=== PATIENT | female | born 1945 | race Caucasian/White ===

== ENCOUNTER → 2016-06-23 | Outpatient (CLI) | payer OTHER ==
[~2016-06-23] MED LIST: ATEN-175 PO; DOCU-94 PO; HYDR2TAB2 PO; LISI-461 PO; MULT-614 PO; OMEG10007 PO; OPTIRAY 320 IV PRN; POLYSOL4 OPB; PROM12.56 PO; SIMV20TA2 PO; TRIA37.5 PO
--- NOTE | 2016-06-23 13:29 | DIAGNOSTIC IMAGING REPORT ---
CT OF THE ABDOMEN AND PELVIS WITH AND WITHOUT CONTRAST CLINICAL HISTORY: Right renal mass. Renal cell carcinoma. COMPARISON STUDY: CT of the abdomen and pelvis June 25, 2015 and MRI of the abdomen November 19, 2014. TECHNIQUE: Unenhanced images of the abdomen and pelvis were obtained. Nephrographic phase imaging was then performed following intravenous injection of 70 cc of Optiray 320 IV. Delayed phase imaging was then performed through the abdomen and pelvis. CT DOSE: 1950.35 mGycm FINDINGS: Lung bases are clear. Mild biliary ductal dilatation is unchanged from prior exam and likely due to cholecystectomy. A subcentimeter right hepatic lobe lesion is unchanged. This is benign. The spleen, adrenal glands and pancreas are normal. The patient is status post right nephrectomy. The nephrectomy bed is within normal limits. A 1.6 cm cyst within the upper pole of the left kidney is noted. 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 There is no left hydronephrosis. There is no evidence for a bowel obstruction. Fat-containing ventral and umbilical hernias are noted. There has been interval development of asymmetry of the right lower lateral abdominal wall. Heterogeneity of the musculature is noted with mild enhancement. A discrete mass is not identified. IMPRESSION: 1. Status post right nephrectomy. No abnormality within the nephrectomy bed. 2. Interval development of asymmetry of the right lower lateral abdominal wall musculature. The muscle now appears heterogeneous with areas of mild enhancement. The findings are nonspecific and could be postsurgical or posttraumatic; however, tumor seeding could appear similar. PET/CT may be of benefit in further evaluation. Electronically signed by: Jeremiah Champion M.D. 06/23/2016 1:27 PM Dictated Date/Time: 06/23/2016 12:12 PM
== END | disposition home or self-care (01) ==
LOC: C.CTS 11:23
PROVIDERS: ATTEND Urology
DX: N28.89 Other specified disorders of kidney and ureter (principal)

== ENCOUNTER → 2017-01-03 | Outpatient (CLI) | payer OTHER ==
--- NOTE | 2017-01-03 10:54 | DIAGNOSTIC IMAGING REPORT ---
CT ABD/PELVIS COMBO CLINICAL HISTORY: CLEAR CELL RENAL CELL CARCINOMA COMPARISON STUDY: 06/23/2016 TECHNIQUE: Unenhanced images were obtained through the abdomen and pelvis. The patient was then scanned in a dynamic fashion during intravenous administration of 80 cc of Optiray 320. 5 minute delayed images were also acquired. A dose lowering technique was utilized adhering to the principles of ALARA. CT DOSE: 1813.91 mGycm FINDINGS: Lower chest: There are minimal dependent atelectatic changes present. There is a small hiatal hernia. Liver: There is a stable 2 small to characterize 4 mm hypodensity within the right hepatic lobe. There is no significant ductal dilatation. Gallbladder: Surgically absent Spleen: Normal in size and attenuation. Pancreas: Unremarkable. Adrenal glands: There is stable left adrenal gland thickening. Kidneys: The right kidney is surgically absent. No renal, ureteral, or bladder calculi are visualized. 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 There is a 14 mm upper pole left renal cyst. This too small to characterize 3 mm hypodensity arising from the lower pole of the left kidney likely representing an additional cyst. No collecting system filling defects are visualized. No ureteral lesions are visualized. No bladder lesions are visualized. Bowel: There are no transition zones indicate bowel obstruction. There is sigmoid diverticulosis. Minimal sigmoid peridiverticular inflammatory stranding cannot be excluded. Peritoneum: There is no intraperitoneal free air or abdominal ascites. There is a fat-containing umbilical hernia, and fat-containing superior umbilical ventral hernia. There is additional ventral hernia which contains a small portion of transverse colon. Superior to this is an additional fat-containing ventral hernia. Vasculature: The abdominal aorta is normal in course and caliber. Adenopathy: None. Pelvic viscera: The bladder, and pelvic viscera are unremarkable. Skeletal structures: No destructive osseous lesions are seen. Minimal asymmetry of the right lower anterolateral abdominal wall musculature remains similar. IMPRESSION: 1. Surgically absent right kidney 2. Multiple ventral hernias 3. 9 mm left renal angiomyolipoma 4. 14 mm upper pole left renal cyst 5. No evidence of pathologic adenopathy 6. Sigmoid diverticulosis. Equivocal minimal peridiverticular inflammatory stranding Electronically signed by: Edward Medellin M.D. 01/03/2017 10:52 AM Dictated Date/Time: 01/03/2017 10:33 AM
== END | disposition home or self-care (01) ==
LOC: C.CTS 09:18
PROVIDERS: ATTEND Urology
DX: C64.9 Malignant neoplasm of unspecified kidney, except renal pelvis (principal); Z90.5 Acquired absence of kidney; K43.9 Ventral hernia without obstruction or gangrene; D17.71 Benign lipomatous neoplasm of kidney; N28.1 Cyst of kidney, acquired; K57.30 Diverticulosis of large intestine without perforation or abscess without bleeding

== ENCOUNTER → 2017-03-16 | Outpatient (CLI) | payer OTHER ==
[~2017-03-16] MED LIST changes: -OPTIRAY 320 IV PRN
--- NOTE | 2017-03-17 14:43 | DIAGNOSTIC IMAGING REPORT ---
MRA OF THE INTRACRANIAL CIRCULATION WITHOUT CONTRAST CLINICAL HISTORY: Brain mass. COMPARISON STUDY: None available at time of interpretation. TECHNIQUE: Utilizing a 1.5 Elizabeth magnet and 3-D [id number] technique, unenhanced MRA of the intracranial circulation was obtained. FINDINGS: Note is made of a mass centered within the right aspect of the agustin that measures approximately 2.5 x 1.8 x 1.5 cm. There is significant vascularity of this mass. This mass is suboptimally assessed on this MRA examination. Boat Buffer Plastic images demonstrate associated edema. No additional intracranial masses are identified on this MRA. The bilateral M1, M2, A1 and A2 segments are patent. The left vertebral artery is dominant and patent. No abrupt vessel cut off is identified. There is no intracranial aneurysm. IMPRESSION: 1. 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 Mass suboptimally assessed on this MRA exam but associated vasogenic edema and significant vascularity of this lesion. This lesion is indeterminate and could be correlated with prior imaging studies. A neoplastic process, including metastatic disease, is the diagnosis of exclusion. 2. Otherwise, unremarkable MRA of the intracranial circulation for age. Electronically signed by: Jeremiah Champion M.D. 03/17/2017 2:42 PM Dictated Date/Time: 03/16/2017 8:49 PM
== END | disposition home or self-care (01) ==
LOC: C.MRI 19:09
DX: R42 Dizziness and giddiness (principal); R22.0 Localized swelling, mass and lump, head; G93.9 Disorder of brain, unspecified

== ENCOUNTER → 2017-05-05 | Outpatient (CLI) | payer OTHER ==
[~2017-05-05] MED LIST changes: +AMLO-114 PO; +HYDR12.56 PO
--- NOTE | 2017-05-05 15:39 | DIAGNOSTIC IMAGING REPORT ---
BILATERAL LOWER EXTREMITY VENOUS DOPPLER HISTORY: Edema of the bilateral lower extremities. CLEAR CELL CARCINOMA RT KIDNEY, EDEMA LOWER EXT COMPARISON STUDY: None available. FINDINGS: RIGHT: There is normal compressibility, flow, and augmentation within the bilateral lower extremity deep venous systems. LEFT: Nonocclusive thrombus involves the popliteal vein within the proximal mid portions of the vessel. There is occlusive thrombus noted within the distal portion of the popliteal vein, posterior tibial and peroneal veins and also within one of the two anterior tibial veins. There is otherwise normal flow, compressibility, phasicity and augmentation of the left lower extremity deep venous structures. IMPRESSION: 1. Occlusive deep venous thrombosis extends from the left popliteal vein into the posterior tibial, peroneal and anterior tibial veins. 2. No sonographic evidence of deep venous thrombosis on the right. Electronically signed by: Damaso Rees M.D. 05/05/2017 3:38 PM Dictated Date/Time: 05/05/2017 3:35 PM
== END | disposition home or self-care (01) ==
LOC: C.ULTRBC 14:39
PROVIDERS: ATTEND Internal Medicine Hematology & Oncology
DX: C64.1 Malignant neoplasm of right kidney, except renal pelvis (principal); I82.432 Acute embolism and thrombosis of left popliteal vein; I82.442 Acute embolism and thrombosis of left tibial vein; I82.492 Acute embolism and thrombosis of other specified deep vein of left lower extremity

== ENCOUNTER 2017-09-09 18:58 | Emergency (ER) | payer OTHER ==
[~2017-09-09] VITALS: Ht 157.5 cm; Wt 81.4 kg
[~2017-09-09 18:58] MED LIST changes: -DOCU-94 PO; +DOXY100C2 PO; -HYDR2TAB2 PO; -LISI-461 PO; -PROM12.56 PO; -TRIA37.5 PO
[2017-09-09 19:06] VITALS: TEMP 36.7; Ht 157.5 cm; Wt 81.4 kg
[2017-09-09] MEDS ORDERED: SODIUM CHLORIDE 0.9% 1000ML 1,000 ML IV STA (19:18)
[2017-09-09 19:45] LABS: BASO % 0.5 %; BASO ABS # 0.02 K/uL (0-0.2); EOS % 1.6 %; EOS ABS # 0.07 K/uL (0-0.5); HEMATOCRIT 37.5 % (37-47); HEMOGLOBIN 12.7 g/dL (12.0-16.0); IG# 0.02 K/uL (0.00-0.02); LYMPH % 26.9 %; LYMPH ABS # 1.19 K/uL (1.2-3.4); MEAN CELL VOLUME 94.2 fL (80-100); MEAN CORPUSCULAR HEMOGLOBIN 31.9 pg (25-34); MEAN CORPUSCULAR HGB CONC 33.9 g/dl (32-36); MEAN PLATELET VOLUME 9.3 fL (7.4-10.4); MONO % 10.8 %; MONO ABS # 0.48 K/uL (0.11-0.59); NEUT % 59.7 %; NEUT ABS # 2.65 K/uL (1.4-6.5); PLATELET COUNT 235 K/uL (130-400); RED CELL DISTRIBUTION WIDTH CV 16.6 % (11.5-14.5); RED CELL DISTRIBUTION WIDTH SD 57.3 fL (36.4-46.3); WHITE BLOOD COUNT 4.43 K/uL (4.8-10.8)
--- NOTE | 2017-09-09 19:48 | DIAGNOSTIC IMAGING REPORT ---
CHEST ONE VIEW PORTABLE CLINICAL HISTORY: Weakness. COMPARISON STUDY: 12/05/2014 FINDINGS: The heart is at the upper limits of normal in size. There is no failure. There is no focal pulmonary consolidation. There are no pleural effusions.[ IMPRESSION: No active disease in the chest. Electronically signed by: Edward Medellin M.D. 09/09/2017 7:46 PM Dictated Date/Time: 09/09/2017 7:46 PM
[2017-09-09 20:04] LABS: CALCIUM 9.5 mg/dl (8.5-10.1); CREATININE 1.2 mg/dl (0.60-1.20); POTASSIUM 3.7 mmol/L (3.5-5.1)
[2017-09-09 20:15] LABS: TOTAL PROTEIN 6.3 gm/dl (6.4-8.2)
[2017-09-09 20:18] VITALS: O2SAT 96
--- NOTE | 2017-09-09 20:45 | DIAGNOSTIC IMAGING REPORT ---
CT HEAD WITHOUT CONTRAST (CT) CLINICAL HISTORY: Acute change in mental status. Dizziness, lethargy. COMPARISON STUDY: May 05, 2017 TECHNIQUE: Axial CT of the brain is performed from the vertex to the skull base. IV contrast was not administered for this examination. A dose lowering technique was utilized adhering to the principles of ALARA. CT DOSE: 537.48 mGy.cm FINDINGS: There is a suspected 11 mm pontine mass with surrounding vasogenic edema. There is no midline shift. There is no acute hemorrhage. There is mild mass effect on the aqueduct. There are patchy white matter hypodensities likely on a small vessel basis. There is mild increase in the hydrocephalus. There is no evidence of acute sinusitis. There is a osteoma in the region of the frontal processes the right zygoma IMPRESSION: Persistent pontine mass with surrounding vasogenic edema. No acute hemorrhage. Developing mild hydrocephalus. Electronically signed by: Edward Medellin M.D. 09/09/2017 8:44 PM Dictated Date/Time: 09/09/2017 8:40 PM
[2017-09-09 20:47] LABS: INFLUENZA B ANTIGEN Neg for Influ B (NEG)
--- NOTE | 2017-09-09 21:24 | EMERGENCY ROOM VISIT NOTE ---
History Report prepared by Lloyd: Brian Lobo Under the Supervision of: Dr. Chun Zambrano M.D. First contact with patient: 19:10 Chief Complaint: NEURO SYMPTOMS Stated Complaint: DIZZINESS, LETHARGIC, DISORIENTED-REFERRED History of Present Illness The patient is a 72 year old female who presents to the Emergency Room with complaints of constant weakness beginning 12 days ago. The patient states she has history of a brain tumor. She reports she was sent here by her oncologist. The patient notes she was treated with concentrated radiation 6 months ago, and she has not received treatment since. The patient states her tumor has shrunk, and she gets evaluated every three months for follow-ups. She reports she had a follow-up MRI scan with contrast 12 days ago at her follow-up. The patient notes she was also told to stop taking her steroids. She states since she has been off her steroids, she has become weak and unsteady when she walks. The patient reports she can no longer transport herself from the wheelchair to the bed. She states she also is having trouble with her short term memory and is very lethargic. She notes she has been taken off steroids 2 or 3 times previously and had similar symptoms. The patient states they typically do not last this long. She reports her left side is weaker than her right at baseline. The patient denies abdominal pain. Source of History: patient Onset: 12 days ago Quality: other (weakness) Timing: constant Modifying Factors (Worsening): other (not taking steroids) Associated Symptoms: No abdominal pain Note: Associated symptoms: unsteadiness when she walks, bad short term memory, lethargy Review of Systems See HPI for pertinent positives & negatives. A total of 10 systems reviewed and were otherwise negative. Past Medical & Surgical Medical Problems: (1) Brain mass (2) Renal carcinoma Surgical Problems: (1) History of kidney removal Family History Cancer Diabetes mellitus Gallbladder disease Heart disease Hypertension Kidney disease Kidney stones Lung disease Social History Smoking Status: Never Smoker Smokeless Tobacco Use: No Alcohol Use: none Marital Status: Housing Status: lives with significant other Occupation Status: retired Current/Historical Medications Scheduled Amlodipine (Norvasc), 10 MG PO QPM Atenolol (Tenormin), 50 MG PO BID Doxycycline Hyclate (Vibramycin), 100 MG PO BID Enoxaparin (Enoxaparin Sodium), UD Erythromycin (Erythromycin), 1 APPLN OPB HS Fish Oil (Troy-3), 1 CAP PO QAM Heparin Sod (Porcine) (Heparin Sq), 0.5 ML SQ Q8 Hydrochlorothiazide (Hctz), 12.5 MG PO DAILY Multiple Vitamins W/ Minerals (Centrum Silver Ultra [place]ome), 1 TAB PO QAM Omeprazole (Prilosec), 20 MG PO DAILY Polyethylene Glycol-Propylene (Systane), 2 DROPS OPB PRN Simvastatin (Zocor), 20 MG PO QPM Venlafaxine Hcl (Venlafaxine Extended Rel), 37.5 MG PO DAILY Scheduled PRN Furosemide (Furosemide), 40 MG PO 3XWK PRN for swelling Allergies Coded Allergies: No Known Allergies (Unverified , 05/05/17) Physical Exam Vital Signs Date Time Temp Pulse Resp B/P (MAP) Pulse Ox O2 Delivery O2 Flow Rate FiO2 09/10/17 01:05 59 18 143/95 94 09/09/17 21:45 64 18 144/80 95 Room Air 09/09/17 20:18 96 Room Air 09/09/17 20:18 75 09/09/17 20:18 96 Room Air 09/09/17 20:18 71 140/93 96 Room Air 92 129/96 99 138/95 09/09/17 19:06 36.7 79 18 120/83 93 Room Air Physical Exam GENERAL: Awake, alert, well appearing, no distress HENT: Normocephalic, atraumatic. TM's normal. Oropharynx unremarkable. EYES: PERRL. Normal conjunctiva. Sclera non-icteric. Fundi normal. EOMI NECK: Supple. No nuchal rigidity. FROM. RESPIRATORY: CTA CARDIAC: RRR. Extremities warm and well perfused. ABDOMEN: Soft, non distended. No tenderness to palpation. No rebound or guarding. No masses. MUSCULOSKELETAL: Unremarkable. EXTREMITIES: No edema. No discoloration. Gross motor strength 5/5 bilaterally. NEURO: Normal sensorium. No sensory or motor deficits noted. Gait normal. Speech normal. Cranial nerves two through 12 intact. No pronator drift. Negative Romberg. Normal rapid alternating movements. SKIN: No rash or jaundice noted. LYMPH: No adenopathy. Medical Decision & Procedures ER Provider Diagnostic Interpretation: Radiology results as stated below per my review and radiologist interpretation: MRI OF THE BRAIN WITHOUT AND WITH IV CONTRAST CLINICAL HISTORY: Weakness, lethargy, difficulty with balance. Metastatic renal cell carcinoma. COMPARISON STUDY: 05/05/2017 TECHNIQUE: MRI of the brain was performed from the vertex to the skull base utilizing various T1 and T2 weighted sequences. Following the IV administration of 8 mL of Gadavist contrast, additional enhanced images were obtained. FINDINGS: Sagittal T1, axial diffusion, proton density and T2 weighted axial, coronal FLAIR, and pre and post axial T1-weighted images were acquired. These were supplemented with post gadolinium coronal T1 weighted images. There is an enlarging mass with its epicenter in the right agustin. The mass measures 22 x 32 x 16 mm. The central portion the mass demonstrates no enhancement suggesting central necrosis. The mass extends into the right midbrain. There is extensive associated vasogenic edema. There is probable secondary narrowing of the aqueduct with developing mild hydrocephalus. Axial diffusion-weighted images reveal no evidence of acute or subacute infarction. There is developing mild hydrocephalus with dilatation of the temporal horns In addition to the extensive vasogenic edema from the brainstem neoplasm, there are multiple scattered foci of increased T2 and FLAIR signal within the white matter likely a small vessel basis. In addition there is increased T2 signal within the right anterior medulla. 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 There are no abnormal flow voids. No additional enhancing masses are visualized. IMPRESSION: 1. Enlarging mass with its epicenter in the right agustin measuring 22 x 32 x 16 mm. There is increasing surrounding vasogenic edema. There is developing mild hydrocephalus. 2. 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 09/09/2017 10:40 PM Dictated Date/Time: 09/09/2017 10:[address] HEAD WITHOUT CONTRAST (CT) CLINICAL HISTORY: Acute change in mental status. Dizziness, lethargy. COMPARISON STUDY: May 05, 2017 TECHNIQUE: Axial CT of the brain is performed from the vertex to the skull base. IV contrast was not administered for this examination. A dose lowering technique was utilized adhering to the principles of ALARA. CT DOSE: 537.48 mGy.cm FINDINGS: There is a suspected 11 mm pontine mass with surrounding vasogenic edema. There is no midline shift. There is no acute hemorrhage. There is mild mass effect on the aqueduct. There are patchy white matter hypodensities likely on a small vessel basis. There is mild increase in the hydrocephalus. There is no evidence of acute sinusitis. There is a osteoma in the region of the frontal processes the right zygoma IMPRESSION: Persistent pontine mass with surrounding vasogenic edema. No acute hemorrhage. Developing mild hydrocephalus. Electronically signed by: Edward Medellin M.D. 09/09/2017 8:44 PM Dictated Date/Time: 09/09/2017 8:40 PM CHEST ONE VIEW PORTABLE CLINICAL HISTORY: Weakness. COMPARISON STUDY: 12/05/2014 FINDINGS: The heart is at the upper limits of normal in size. There is no failure. There is no focal pulmonary consolidation. There are no pleural effusions. IMPRESSION: No active disease in the chest. Electronically signed by: Edward Medellin M.D. 09/09/2017 7:46 PM Dictated Date/Time: 09/09/2017 7:46 PM Laboratory Results 09/09/17 19:30 Red Blood Count 3.98, Mean Corpuscular Volume 94.2, Mean Corpuscular Hemoglobin 31.9, Mean Corpuscular Hemoglobin Concent 33.9, Mean Platelet Volume 9.3, Neutrophils (%) (Auto) 59.7, Lymphocytes (%) (Auto) 26.9, Monocytes (%) (Auto) 10.8, Eosinophils (%) (Auto) 1.6, Basophils (%) (Auto) 0.5, Neutrophils # (Auto ) 2.65, Lymphocytes # (Auto) 1.19, Monocytes # (Auto) 0.48, Eosinophils # (Auto ) 0.07, Basophils # (Auto) 0.02 09/09/17 19:30 Test 09/09/17 19:30 09/09/17 19:50 09/09/17 20:05 White Blood Count 4.43 K/uL (4.8-10.8) Red Blood Count 3.98 M/uL (4.2-5.4) Hemoglobin 12.7 g/dL (12.0-16.0) Hematocrit 37.5 % (37-47) Mean Corpuscular Volume 94.2 fL (80-100) Mean Corpuscular Hemoglobin 31.9 pg (25-34) Mean Corpuscular Hemoglobin Concent 33.9 g/dl (32-36) Platelet Count 235 K/uL (130-400) Mean Platelet Volume 9.3 fL (7.4-10.4) Neutrophils (%) (Auto) 59.7 % Lymphocytes (%) (Auto) 26.9 % Monocytes (%) (Auto) 10.8 % Eosinophils (%) (Auto) 1.6 % Basophils (%) (Auto) 0.5 % Neutrophils # (Auto) 2.65 K/uL (1.4-6.5) Lymphocytes # (Auto) 1.19 K/uL (1.2-3.4) Monocytes # (Auto) 0.48 K/uL (0.11-0.59) Eosinophils # (Auto) 0.07 K/uL (0-0.5) Basophils # (Auto) 0.02 K/uL (0-0.2) RDW Standard Deviation 57.3 fL (36.4-46.3) RDW Coefficient of Variation 16.6 % (11.5-14.5) Immature Granulocyte % (Auto) 0.5 % Immature Granulocyte # (Auto) 0.02 K/uL (0.00-0.02) Anion Gap 7.0 mmol/L (3-11) Est Creatinine Clear Calc Drug Dose 43.1 ml/min Estimated GFR () 53.0 Estimated GFR (Non- 45.8 BUN/Creatinine Ratio 11.8 (10-20) Calcium Level 9.5 mg/dl (8.5-10.1) Total Bilirubin 0.5 mg/dl (0.2-1) Direct Bilirubin 0.1 mg/dl (0-0.2) Aspartate Amino Transf (AST/SGOT) 21 U/L (15-37) Alanine Aminotransferase (ALT/SGPT) 37 U/L (12-78) Alkaline Phosphatase 78 U/L (45-117) Total Protein 6.3 gm/dl (6.4-8.2) Albumin 3.0 gm/dl (3.4-5.0) Thyroid Stimulating Hormone (TSH) 1.150 uIu/ml (0.300-4.500) Influenza Type A Antigen Neg for Influ A (NEG) Influenza Type B Antigen Neg for Influ B (NEG) Urine Color DK YELLOW Urine Appearance CLEAR (CLEAR) Urine pH 5.5 (4.5-7.5) Urine Specific [place] 1.023 (1.000-1.030) Urine Protein NEG (NEG) Urine Glucose (UA) NEG (NEG) Urine Ketones NEG (NEG) Urine Occult Blood NEG (NEG) Urine Nitrite NEG (NEG) Urine Bilirubin NEG (NEG) Urine Urobilinogen NEG (NEG) Urine Leukocyte Esterase SMALL (NEG) Urine WBC (Auto) 10-30 /hpf (0-5) Urine RBC (Auto) 0-4 /hpf (0-4) Urine Hyaline Casts (Auto) 1-5 /lpf (0-5) Urine Epithelial Cells (Auto) 20-30 /lpf (0-5) Urine Bacteria (Auto) NEG (NEG) Urine Crystals CALCIUM OXALATE (NONE Labs reviewed by ED physician. Medications Administered Medications (Trade) Dose Ordered Sig/Helen Route Start Time Stop Time Status Last Admin Dose Admin Sodium Chloride 1,000 ml @ 999 mls/hr Q1H1M STAT IV 09/09/17 19:18 09/09/17 20:18 DC 09/09/17 19:00 999 MLS/HR Dexamethasone Sodium Phosphate (Dexamethasone Inj Pf) 10 mg STK-MED ONCE .ROUTE 09/09/17 23:31 09/09/17 23:32 DC 09/09/17 23:34 10 MG ECG Per My Interpretation Indication: weakness Rate (beats per minute): 63 Rhythm: normal sinus Findings: other (Old lateral infarct, no ST elevation or depression) ED Course 1910: Past medical records reviewed. The patient was evaluated in room B08. A complete history and physical examination was performed. 1920: I discussed the patient's case with her oncologist Dr. Cheney, [facility]. She states the patient needs an MRI with contrast. 1917: Ordered Sodium Chloride 1000 ml @ 999 mls/hr 2250: I updated Dr. Cheney about the patient's MRI results. She reports the patient needs to be transferred to [facility]. She has accepted the patient as a transfer patient. 2251: Ordered Dexamethasone Sodium Phosphate 10 mg/Syringe 2.5 ml @ 1 mls/min IV 2256: Upon reexamination the patient is resting comfortably. I discussed results and treatment plan with the patient. She verbalizes agreement and understanding. The patient and her have elected to be transported via private vehicle. Medical Decision Etiologies such as metabolic, infection, hypo/hyperglycemia, electrolyte abnormalities, cardiac sources, intracerebral event, toxicologic, neurologic, as well as others were entertained. This is a 72-year-old female who presents the emergency department over concerns of increasing confusion and ataxia over the past 3 weeks. Patient was sent in by her oncologist for an MRI with contrast. The patient's MRI with contrast is concerning for an increasing size of her metastatic lesion. I did discuss this with the patient's oncologist who asked that the patient be transferred to [place]. I then discussed the case with the neurosurgeon on- call in [place] who readily accepted the patient. The patient's MRI was compared to an MRI that was done 3 weeks ago and I will note that the mass appears to be growing. The patient was given Decadron here in the emergency department. The patient and her wish to drive themselves and do not want an ambulance. I feel that this is reasonable. Medication Reconcilliation Current Medication List: was personally reviewed by me Blood Pressure Screening Patient's blood pressure: Normal blood pressure Blood pressure disposition: Did not require urgent referral Consults Time Called: 1911 Consulting Physician: Dr. Cheney, [facility] Returned Call: 1920 I discussed the patient's case with her oncologist Dr. Cheney, [facility]. She states the patient needs an MRI with contrast. 2250: I updated Dr. Cheney about the patient's MRI results. She reports the patient needs to be transferred to [facility]. She has accepted the patient as a transfer patient. Impression Primary Impression: Brain mass Scribe Attestation The scribe's documentation has been prepared under my direction and personally reviewed by me in its entirety. I confirm that the note above accurately reflects all work, treatment, procedures, and medical decision making performed by me. Departure Information Dispostion Transfer Acute Care Facility Referrals Mati Cheney MD (PCP) Forms HOME CARE DOCUMENTATION FORM, IMPORTANT VISIT INFORMATION, WORK / SCHOOL INSTRUCTIONS Patient Instructions My [facility] Additional Instructions Go Directly to [place]
[2017-09-09] MEDS ORDERED: GADAVIST IV PRN (22:30)
--- NOTE | 2017-09-09 22:41 | DIAGNOSTIC IMAGING REPORT ---
MRI OF THE BRAIN WITHOUT AND WITH IV CONTRAST CLINICAL HISTORY: Weakness, lethargy, difficulty with balance. Metastatic renal cell carcinoma. COMPARISON STUDY: 05/05/2017 TECHNIQUE: MRI of the brain was performed from the vertex to the skull base utilizing various T1 and T2 weighted sequences. Following the IV administration of 8 mL of Gadavist contrast, additional enhanced images were obtained. FINDINGS: Sagittal T1, axial diffusion, proton density and T2 weighted axial, coronal FLAIR, and pre and post axial T1-weighted images were acquired. These were supplemented with post gadolinium coronal T1 weighted images. There is an enlarging mass with its epicenter in the right agustin. The mass measures 22 x 32 x 16 mm. The central portion the mass demonstrates no enhancement suggesting central necrosis. The mass extends into the right midbrain. There is extensive associated vasogenic edema. There is probable secondary narrowing of the aqueduct with developing mild hydrocephalus. Axial diffusion-weighted images reveal no evidence of acute or subacute infarction. There is developing mild hydrocephalus with dilatation of the temporal horns In addition to the extensive vasogenic edema from the brainstem neoplasm, there are multiple scattered foci of increased T2 and FLAIR signal within the white matter likely a small vessel basis. In addition there is increased T2 signal within the right anterior medulla. 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 There are no abnormal flow voids. No additional enhancing masses are visualized. IMPRESSION: 1. Enlarging mass with its epicenter in the right agustin measuring 22 x 32 x 16 mm. There is increasing surrounding vasogenic edema. There is developing mild hydrocephalus. 2. 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 09/09/2017 10:40 PM Dictated Date/Time: 09/09/2017 10:31 PM
[2017-09-09] MEDS ORDERED: DEXAMETHASONE INJ 10 MG in SYRINGE 0 ML IV STA (22:52)
[2017-09-09] MEDS ORDERED: DEXAMETHASONE **PF** INJ 10 MG/ML VIAL ONE (23:31)
[2017-09-10] MEDS ORDERED: DEXAMETHASONE INJ 4 MG in SYRINGE 0 ML IV SCH
[2017-09-10] MEDS ORDERED: LVNIS40 (00:28)
[2017-09-10] MEDS ORDERED: HPRIS5MX SQ (00:29)
[2017-09-10] MEDS ORDERED: ERYOPO1 OPB (00:29)
[2017-09-10] MEDS ORDERED: VENL37.593 PO (00:33)
[2017-09-10] MEDS ORDERED: LSX40 PO (00:33)
[2017-09-10] MEDS ORDERED: OMEP20CA9 PO (00:33)
[2017-09-10] MEDS ORDERED: HEPARIN SOD 5000 UNIT/0.5 ML CARP SQ STA (00:52)
[2017-09-10 01:05] VITALS: BP 143/95; PULSE 59; O2SAT 94
== END 2017-09-10 01:06 | disposition short-term general hospital (02) ==
LOC: C.EDB 19:00
DX: G93.9 Disorder of brain, unspecified (principal); Z92.3 Personal history of irradiation; Z85.528 Personal history of other malignant neoplasm of kidney; Z90.5 Acquired absence of kidney; Z83.3 Family history of diabetes mellitus; Z82.49 Family history of ischemic heart disease and other diseases of the circulatory system; Z84.1 Family history of disorders of kidney and ureter